=== PATIENT | female | born 1980 | race Caucasian/White ===

== ENCOUNTER 2018-05-01 18:43 | Emergency (ER) | payer OTHER ==
[~2018-05-01] VITALS: Ht 165.1 cm; Wt 81.2 kg
[2018-05-01 18:52] VITALS: Ht 165.1 cm; Wt 81.2 kg
[2018-05-01 22:30] VITALS: BP 138/82
== END 2018-05-01 22:30 | disposition home or self-care (01) ==
LOC: ED 18:43
DX: R25.2 Cramp and spasm (principal); R22.43 Localized swelling, mass and lump, lower limb, bilateral; I10 Essential (primary) hypertension; Z86.718 Personal history of other venous thrombosis and embolism; Z86.711 Personal history of pulmonary embolism; Z90.89 Acquired absence of other organs; Z88.8 Allergy status to other drugs, medicaments and biological substances; Z79.899 Other long term (current) drug therapy
CPT/HCPCS: Q0092

== ENCOUNTER 2018-05-21 22:59 | Emergency (ER) | payer OTHER ==
[~2018-05-21] VITALS: Ht 165.1 cm; Wt 80.1 kg
[2018-05-21 23:59] VITALS: BP 133/94
== END 2018-05-21 23:59 | disposition home or self-care (01) ==
LOC: ED 22:59
DX: Z86.718 Personal history of other venous thrombosis and embolism (principal); Z79.01 Long term (current) use of anticoagulants; M79.662 Pain in left lower leg; R22.42 Localized swelling, mass and lump, left lower limb; I10 Essential (primary) hypertension; Z90.49 Acquired absence of other specified parts of digestive tract; Z88.8 Allergy status to other drugs, medicaments and biological substances